=== PATIENT | female | born 1975 | race American Indian/Alaskan Native ===

== ENCOUNTER 2016-07-12 19:59 | Emergency (ER) | payer SELFPAY ==
[2016-07-12 20:12] VITALS: BP 137/84
[2016-07-12 21:45] LABS: Hematocrit 37.1 % (30.3-42.9); Hemoglobin 11.7 gm/dl (10.1-14.3); Mean Corpuscular HGB Conc 32 % (30-34); Mean Corpuscular Volume 79 fl (79-97); Platelet Count 367 K/mm3 (140-440); Red Blood Count 4.72 M/mm3 (3.65-5.03); Red Cell Distribution Width 16.8 % (13.2-15.2); White Blood Count 8.8 K/mm3 (4.5-11.0)
[2016-07-12 21:48] LABS: Anion Gap 18 mmol/L; BUN/Creatinine Ratio 14.28; Blood Urea Nitrogen 10 mg/dL (7-17); Calcium 8.8 mg/dL (8.4-10.2); Carbon Dioxide 25 mmol/L (22-30); Chloride 98.1 mmol/L (98-107); Glucose 100 mg/dL (65-100); Potassium 3.3 mmol/L (3.6-5.0); Sodium 138 mmol/L (137-145)
[2016-07-12 21:49] LABS: Mean Corpuscular Hemoglobin 25 pg (28-32)
== END 2016-07-12 23:00 | disposition left against medical advice (07) ==
LOC: ED 19:59
DX: R20.0 Anesthesia of skin (principal); R68.84 Jaw pain; Z53.21 Procedure and treatment not carried out due to patient leaving prior to being seen by health care provider
CPT/HCPCS: 36415; 80048; 82962; 85027; 93005; 93010